=== PATIENT | male | born 1985 | race American Indian/Alaskan Native ===

== ENCOUNTER 2019-09-05 13:11 | Emergency (ER) | payer SELFPAY ==
[2019-09-05 13:43] VITALS: BP 144/90
[2019-09-05] MEDS ORDERED: TETANUS,DIPH,PERTUSS(ACELL) VACCINE 0.5 ML SYRINGE IM ONE (14:06)
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
== END 2019-09-05 14:35 | disposition home or self-care (01) ==
LOC: ED 13:11
DX: S51.811A Laceration without foreign body of right forearm, initial encounter (principal); Z98.890 Other specified postprocedural states; F17.200 Nicotine dependence, unspecified, uncomplicated; Z79.899 Other long term (current) drug therapy; W45.8XXA Other foreign body or object entering through skin, initial encounter; Y93.89 Activity, other specified; Y92.89 Other specified places as the place of occurrence of the external cause; Y99.8 Other external cause status
CPT/HCPCS: 90471; 90715